=== PATIENT | male | born 1995 ===

== ENCOUNTER 2019-01-11 09:47 | Emergency (ER) | payer BC, OTHER ==
[2019-01-11 09:55] VITALS: BP 121/66
--- NOTE | 2019-01-11 10:08 | UC ---
Abdominal Pain Male HPI - HPI Summary HPI Summary: 23 yo male presents with dizziness and nausea. He tells me that 3 days ago he started developed some mild right ear pain and felt a little dizzy. Ear pain went away later in the day, but dizziness persisted. Since that time his dizziness has gotten worse. Dizziness is worse with position changes, specifically from a lying to seated or standing position. Laying down improves his dizziness. This morning he felt nauseous and vomited x1 - attributes this to feeling extremely dizzy upon sitting up in bed. Denies fever, chills, sinus symptoms, sore throat, SOB, chest pain, diarrhea, headache, or weakness. - History of Current Complaint Chief Complaint: UCAbdominalPain Stated Complaint: DIZZY Hx Obtained From: Patient Onset/Duration: Gradual Onset Severity Initially: Mild Severity Currently: Moderate Pain Intensity: 7 Pain Scale Used: 0-10 Numeric - Allergies/Home Medications Allergies/Adverse Reactions: Allergies Allergy/AdvReac Type Severity Reaction Status Date / Time No Known Allergies Allergy Verified 01/11/19 09:55 PMH/Surg Hx/FS Hx/Imm Hx - Additional Past Medical History Additional PMH: None - Surgical History Surgical History: None - Family History Known Family History: Positive: None - Social History Lives: With Family Alcohol Use: Occasionally Substance Use Type: None Smoking Status (MU): Never Smoked Tobacco Review of Systems All Other Systems Reviewed And Are Negative: Yes Constitutional: Positive: Negative Skin: Positive: Negative Eyes: Positive: Negative ENT: Positive: Ear Ache Respiratory: Positive: Negative Cardiovascular: Positive: Negative Gastrointestinal: Positive: Vomiting, Nausea Genitourinary: Positive: Negative Motor: Positive: Negative Neurovascular: Positive: Negative Musculoskeletal: Positive: Negative Neurological: Positive: Other - Dizziness Psychological: Positive: Negative Physical Exam - Summary Physical Exam Summary: GENERAL: NAD. WDWN. No pain distress. SKIN: No rashes, sores, ulcers, masses, lesions. HEENT: Head: AT/NC. No raccoon eyes or battles sign. Eyes: PERRLA. EOM intact. Conjunctiva clear without inflammation or discharge. Ears: Hearing grossly normal. RIGHT TM with moderate erythema and bulging. No canal edema or drainage. LEFT TM WNL and intact. Nose: Nasal mucosa pink and moist. NTTP maxillary and frontal sinus. Throat: Posterior oropharynx without exudates, erythema, or tonsillar enlargement. Uvula midline. NECK: Supple. Nontender. FROM CHEST: CTAB. No r/r/w. No accessory muscle use. Breathing comfortably and in no distress. CV: RRR. Without m/r/g. Pulses intact. Brisk cap refill. ABDOMEN: Soft. NTTP. Bowel sounds present MSK: FROM in B/L UEs and LEs with symmetric strength. NEURO: A&Ox3. 3 word recall, remote, recent memory, ability to follow 2-step directions, and attention intact. CN: II: Peripheral pugh intact. Vision normal. III, IV, : EOMI. No nystagmus. PERRLA. V: Sensations intact and symmetric. Opens mouth and clenches teeth. VII: No facial asymmetry. Forehead wrinkles. Grins, shuts eyes, frowns, puffs cheeks. VIII: Hearing intact to finger rub. IX, X: Swallows and coughs. Uvula midline. XI: Shrugs shoulders. Turns head against resistance. XII: No tongue deviation Pnymki-ct-maev are intact. Gait with normal base. Romberg: maintains balance, no pronator drift. Normal speech. No facial drooping. PSYCH: Age appropriate behavior. Triage Information Reviewed: Yes Vital Signs: Initial Vital Signs Temp 97.1 F 01/11/19 09:52 Pulse 72 01/11/19 09:52 Resp 16 01/11/19 09:52 BP 121/66 01/11/19 09:52 Pulse Ox 100 01/11/19 09:52 Vital Signs Reviewed: Yes Abd Pain Male Course/Dx - Course Course Of Treatment: Right otitis media. Suspect that this is the cause of his dizziness. In the clinic he was given meclizine and zofran for his symptoms. Will dc with rx for amoxicillin and zofran. Advised to f/u if symptoms do not improve. - Differential Dx/Clinical Impression Provider Diagnosis: Right otitis media, Dizziness Discharge - Sign-Out/Discharge Documenting (check all that apply): Patient Departure All imaging exams completed and their final reports reviewed: No Studies - Discharge Plan Condition: Stable Disposition: HOME Prescriptions: Amoxicillin PO (*) [Amoxicillin 875 MG (*)] 875 mg PO BID #14 tab Ondansetron ODT TAB* [Zofran 4 MG Odt TAB*] 4 mg PO Q8H PRN #12 tab.odt PRN Reason: Nausea Patient Education Materials: Ear Infection (ED) Referrals: Dayday Bedoya MD [Primary Care Provider] - Additional Instructions: If you develop a fever, shortness of breath, chest pain, new or worsening symptoms - please call your PCP or go to the ED. - Billing Disposition and Condition Condition: STABLE Disposition: Home
[2019-01-11] MEDS ORDERED: Ondansetron ODT TAB* 4 MG SL ONE (10:17)
[2019-01-11] MEDS ORDERED: Meclizine TAB* 12.5 MG PO ONE (10:17)
== END 2019-01-11 10:28 | disposition home or self-care (01) ==
LOC: UCEAST 09:47
DX: H66.91 Otitis media, unspecified, right ear (principal); R42 Dizziness and giddiness; R11.2 Nausea with vomiting, unspecified
CPT/HCPCS: 99202; A9270-GY; G0463